=== PATIENT | female | born 1955 | race African-American/Black ===

== ENCOUNTER 2017-04-09 21:15 | Emergency (ER) | payer OTHER ==
[~2017-04-09] VITALS: Ht 172.7 cm; Wt 83.5 kg
[~2017-04-09 21:15] MED LIST: ALKA; HYDR-762 PO; HYDR12.53 PO; IBUP800T25 PO; MULT1TAB59 PO
[2017-04-09 21:23] VITALS: Ht 172.7 cm; Wt 83.5 kg
[2017-04-09] MEDS ORDERED: GUAIFENESIN/DM 5ML CUP PO ONE (22:00)
--- NOTE | 2017-04-09 22:13 | ERD ---
ER Documentation Chief Complaint Date/Time DATE: 04/09/17 TIME: 22:05 Chief Complaint diff breathing, cough for several hours HPI 61-year-old female presents here in emergency department for complaints of cough for for 3 days, postnasal drip runny nose nasal congestion on and off wheezing. Patient has been having runny nose and congestion with postnasal drip , started to have cough, dry cough, does not cough any phlegm or blood. Patient does not have any fever or chills. Patient does not have any chest palpitations. Patient denies any dyspnea exertion or dyspnea on lying down. Patient denies any palpitations ROS All systems reviewed and are negative except as per history of present illness. Medications Home Meds Active Scripts Ibuprofen* (Ibuprofen*) 800 Mg Tab, 800 MG PO Q6H Y for PAIN, #20 TAB Prov:RAJ HAGEN PA-C 06/17/15 Hydrocodone Bit-Acetaminophen* ([place]*) 10-325 Mg Tablet, 1 TAB PO Q6 Y for PAIN , #20 TAB Prov:RAJ HAGEN PA-C 06/17/15 Reported Medications Hydrochlorothiazide (Hydrochlorothiazide) 12.5 Mg Capsule, 12.5 MG PO DAILY 07/30/12 Multivitamins* (Multivitamins*) 1 Tab Tablet, PO DAILY 07/27/12 Aspirin (Pam[place]) 1 Tab Tabef, DIRECTED 10/30/11 Allergies Allergies: Coded Allergies: No Known Allergy (Verified , 03/17/14) PMhx/Soc History of Surgery: Yes (KNEE, WRIST) Anesthesia Reaction: No Hx Neurological Disorder: No Hx Respiratory Disorders: No Hx Cardiac Disorders: Yes (htn) Hx Psychiatric Problems: No Hx Miscellaneous Medical Probl: No Hx Alcohol Use: No Hx Substance Use: No Hx Tobacco Use: No FmHx Family History: No coronary disease, No diabetes, No other Physical Exam Vitals Vital Signs Date Time Temp Pulse Resp B/P Pulse Ox O2 Delivery O2 Flow Rate FiO2 04/09/17 21:23 97.7 89 20 148/67 100 Physical Exam GENERAL: The patient is well developed and appropriate for usual state of health, in no apparent distress. HEENT: Atraumatic. Ears: Normal tympanic membrane, no erythema or bulging. No ear canal swelling. No ear discharge. Nose: Erythematous nasal turbinates with clear nasal discharge. Throat: oropharynx erythematous with postnasal General. No tonsillar swelling or tonsillar exudates. No lymphadenopathy. CHEST: Clear to auscultation bilaterally. There are no rales, wheezes or rhonchi. HEART: Regular rate and rhythm. No murmurs, clicks, rubs or gallops. No S3 or S4. ABDOMEN: Soft, nontender and nondistended. Good bowel sounds. No rebound or guarding. No gross peritonitis. No gross organomegaly or masses. No Guerra sign or McBurney point tenderness. BACK: No midline or flank tenderness. EXTREMITIES: Equal pulses bilaterally. There is no peripheral clubbing, cyanosis or edema. No focal swelling or erythema. Full range of motion. Grossly neurovascularly intact. NEURO: Alert and oriented. Cranial nerves 2-12 intact. Motor strength in all 4 extremities with 5/5 strength. Sensation grossly intact. Normal speech and gait. SKIN: There is no apparent rash or petechia. The skin is warm and dry. HEMATOLOGIC AND LYMPHATIC: There is no evidence of excessive bruising or lymphedema. No gross cervical, axillary, or inguinal lymphadenopathy. Results 24 hrs Current Medications Medications (Trade) Dose Ordered Sig/Robbin Route PRN Reason Start Time Stop Time Status Last Admin Dose Admin Guaifenesin/ Dextromethorphan (Robitussin Dm Liquid Cup) 10 ml ONCE ONCE PO 04/09/17 22:00 04/09/17 22:01 DC Cough medications given here in emergency department. PROCEDURE: XR Chest. CLINICAL INDICATION: Shortness of breath. TECHNIQUE: Single frontal view. COMPARISON: 05/08/2008. FINDINGS: The lungs are clear. The heart size is normal. There is no pleural effusion. There is no pneumothorax. IMPRESSION: 1. Normal chest radiograph. 2. No change from 05/08/2008. RPTAT: QQ .Venu Thomas MD, Date Time Electronically viewed and signed by .Venu Thomas MD, on 04/09/2017 22:34 .R/ CC: MABEL PATTERSON NP Procedures/MDM Medical Decision Making: Patient symptoms are most likely consistent with acute bronchitis, which viral in origin. There is low suspicion for Pneumonia at this time since patients lungs sounds are clear, patient O2 saturation is normal and patient doesnt show any respiratory distress. Patients chest xray doesnt show infiltrates or any other cardiopulmonary emergencies at this time. There is low suspicion for other cardiopulmonary emergencies at this time such as CHF, Pulmonary Embolism, Pneumothorax, Aortic Aneurysm or any other cardiopulmonary emergencies at this time. There is low suspicion for sepsis. Patient appears well and is hemodynamically stable. She does not have any fever. Disposition: Home. Condition: Stable Prescriptions: Guaifenesin with codeine and Zyrtec ibuprofen Flonase albuterol Instructions: Patient is advised to take medications as prescribed. Patient is advised to rest. Patient advised to increase fluid intake, do humidifier at home and if possible, do salt water gargles. Patient is advised that if symptoms are worse, shortness of breath, uncontrolled fever, stridor, vomiting, worst signs and symptoms to return to emergency department immediately. Otherwise, patient is advised to follow up with primary doctor in 5-7 days. Departure Diagnosis: Primary Impression: Acute bronchitis Bronchitis organism: unspecified organism Qualified Code: J20.9 - Acute bronchitis, unspecified organism Condition: Stable Patient Instructions: Bronchitis With Wheezing (Adult) Additional Instructions: Patient is advised to take medications as prescribed. Patient is advised to rest. Patient advised to increase fluid intake, do humidifier at home and if possible, do salt water gargles. Patient is advised that if symptoms are worse, shortness of breath, uncontrolled fever, stridor, vomiting, worst signs and symptoms to return to emergency department immediately. Otherwise, patient is advised to follow up with primary doctor in 5-7 days. MABEL PATTERSON NP Apr 09, 2017 22:12
--- NOTE | 2017-04-09 22:34 | RADRPT ---
PROCEDURE: XR Chest. CLINICAL INDICATION: Shortness of breath. TECHNIQUE: Single frontal view. COMPARISON: 05/08/2008. FINDINGS: The lungs are clear. The heart size is normal. There is no pleural effusion. There is no pneumothorax. IMPRESSION: 1. Normal chest radiograph. 2. No change from 05/08/2008. RPTAT: QQ .Venu Thomas MD, MD Date Time Electronically viewed and signed by .Venu Thomas MD, on 04/09/2017 22:34 .R/
[2017-04-09] MEDS ORDERED: IBUP-1542 PO (22:42)
[2017-04-09] MEDS ORDERED: GUAI473L22 PO (22:42)
[2017-04-09] MEDS ORDERED: CETI10CA PO (22:42)
[2017-04-09] MEDS ORDERED: FLUT9.9S NASAL (22:42)
[2017-04-09] MEDS ORDERED: ALBU8.5H3 INH (22:42)
[2017-04-09 23:24] VITALS: BP 115/76; PULSE 70; RESP 20; TEMP 99.1
== END 2017-04-09 23:25 | disposition home or self-care (01) ==
LOC: FTE 21:15
DX: J20.9 Acute bronchitis, unspecified (principal); I10 Essential (primary) hypertension; Z79.82 Long term (current) use of aspirin
CPT/HCPCS: 71010